=== PATIENT | male | born 1990 | race Caucasian/White ===

== ENCOUNTER 2023-07-15 03:11 | Emergency (ER) | payer SELFPAY ==
[~2023-07-15] VITALS: Ht 170.2 cm; Wt 68.0 kg
[2023-07-15 03:31] VITALS: BP 128/84; TEMP 99.3; O2SAT 99
[2023-07-15] MEDS ORDERED: CIPR7.5D9 EACH EAR (03:41)
== END 2023-07-15 03:46 | disposition home or self-care (01) ==
LOC: ER 03:22
DX: H60.91 Unspecified otitis externa, right ear (principal); Z79.899 Other long term (current) drug therapy